=== PATIENT | female | born 1985 | race Caucasian/White ===

== ENCOUNTER 2016-05-25 06:50 | Emergency (ER) | payer MEDICAID, OTHER ==
[2016-05-25] VITALS (17 sets, daily range): PULSE 76–92; TEMP 98.4
[~2016-05-25 06:50] MED LIST: PREN1CAP30 PO; PREN29TA PO
[2016-05-25 08:30] LABS: BACTERIA, URINE MOD /hpf; BLOOD, URINE NEG (NEG); COMMENT (UR) CULTURE INDICATED; CULTURE IF INDICATED CULTURE INDICATED; GLUCOSE,URINE 70 mg/dL (NEG); KETONE, URINE NEG (NEG); NITRITE,URINE NEG (NEG); PH, URINE 6.5 (5.0-8.5); SQUAMOUS EPITHELIAL CELL URINE 32 /hpf (0-5); TRANSITIONAL EPI CELLS, URINE 1 /hpf; URINE COLOR LIGHT-YELLOW (YELLW/STRAW)
--- NOTE | 2016-05-25 08:42 | PD ---
HPI Chief Complaint Lower abdominal discomfort Date Seen: May 25, 2016 Time Seen: 08:10 Travel History International Travel<30 Days: No Contact w/Intl Traveler<30Days: No Known Affected Area: No History of Present Illness HPI 30-year-old 1 para 0 at 31-3/7 weeks gestation with an EDC of July 24. She comes today reporting several weeks of lower abdominal pain which has been worse over the past 12 hours. She denies leakage of fluid or vaginal discharge. No vaginal bleeding or decreased movement. She is uncertain if this represents contractions. Para: 0 : 1 History Past Medical History Narrative Medical Renal lithiasis, last one 6 years ago Obstetric History Obstetric History Primigravida who [facility] Past Surgical History Narrative Surgical Appendectomy Family History Family History: Negative Social History Alcohol Use: No Tobacco Use: Yes (2-10 per day) Substance Abuse: No Allergies-Medications (Allergen,Severity, Reaction): Coded Allergies: Amoxicillin (Verified Allergy, Severe, N/V, 05/25/16) Penicillin (Verified Allergy, Severe, N/V, 05/25/16) Home Meds Active Scripts Without A W/Fe Fum-Fe (Provida Dha 16-16-1.25-110 mg)1 Cap Cap1 Tab PO DAILY #30 BOTTLE Ref 11 Prov:Aisha Grissom 03/27/16 Vit-Iron Carbonyl ( Plus Iron 29-1 mg)1 Tab Tab1 Tab PO DAILY #30 TAB Ref 0 Prov:Katie Velasquez MD 02/03/16 Review of Systems Except as stated in HPI: all other systems reviewed are Neg Physical Exam Vital Signs Date Time Temp Pulse Resp B/P Pulse Ox O2 Delivery O2 Flow Rate FiO2 05/25/16 07:55 85 05/25/16 07:50 86 05/25/16 07:45 92 05/25/16 07:40 83 05/25/16 07:35 85 05/25/16 07:30 98.4 05/25/16 07:30 91 05/25/16 07:25 84 05/25/16 07:20 92 Narrative GENERAL: Well-nourished, well-developed patient. SKIN: Warm and dry. HEAD: Normocephalic and atraumatic. EYES: No scleral icterus. No injection or drainage. ENT: No nasal drainage noted. Mucous membranes pink. Airway patent. NECK: Supple, trachea midline. No JVD. CARDIOVASCULAR: Regular rate and rhythm without murmurs, gallops, or rubs. RESPIRATORY: Breath sounds equal bilaterally. No accessory muscle use. ABDOMEN/GI: Abdomen soft, non-tender, bowel sounds present, no rebound, no guarding Gravid to [-] weeks size Fundal Height: [-] GENITOURINARY: External Genitalia: intact and normal in appearance BUS glands: [Negative-] Cervix: [-] Dilatation: [-Closed] Effacement: [-] Long Station: [High-] Presentation: [-] Membranes: [intact] Uterine Contractions: [-No] FHT's: Category: [-1] Baseline: [-] Reactive: [Yes-] Variability: [-] Decels: [-] EXTREMITIES: No cyanosis or edema. BACK: Nontender without obvious deformity. No CVA tenderness. NEUROLOGICAL: Awake and alert. Motor and sensory grossly within normal limits. Five out of 5 muscle strength in all muscle groups. Normal speech. Data Data Vital Signs Reviewed: Yes Orders Vital Signs (Adult) .ON ADMISSION (05/25/16 07:53) ^ Labor Status (05/25/16 07:53) Urinalysis - C+S If Indicated (05/25/16 07:53) MDM Medical Record Reviewed: Yes Narrative Course / MDM Assessment: 30-year-old primigravida at 31+ weeks gestation with lower abdominal discomfort without evidence of urinary tract disease or labor. I suspect this is nonpathologic pain associated with Plan: Precautions were reviewed with the patient for emergent follow-up. Routine care follow-up was encouraged. Smoking cessation was encouraged. Diagnosis Diagnosis: Primary Impression: 31 weeks gestation of Additional Impression: Pelvic pain affecting in third trimester, antepartum Disposition: 01 DISCHARGE HOME Condition: Good Patient Instructions: General Instructions, Early Labor Signs (ED), Abdominal Pain in (ED) Departure Forms: Tests/Procedures Perry Castrejon MD May 25, 2016 08:42
== END 2016-05-25 08:50 | disposition home or self-care (01) ==
LOC: HOBED 06:50
DX: O26.893 Other specified pregnancy related conditions, third trimester (principal); O99.333 Smoking (tobacco) complicating pregnancy, third trimester; R10.2 Pelvic and perineal pain; Z3A.31 31 weeks gestation of pregnancy
CPT/HCPCS: 81001; 87086; 99284

== ENCOUNTER 2016-06-10 16:32 | Emergency (ER) | payer MEDICAID ==
[2016-06-10 16:39] VITALS: BP 123/77; PULSE 71; RESP 15; TEMP 98.2; O2SAT 97
== END 2016-06-10 17:42 | disposition left against medical advice (07) ==
LOC: NED 16:32
DX: R10.32 Left lower quadrant pain (principal)
CPT/HCPCS: 99281

== ENCOUNTER 2017-01-11 06:32 | Emergency (ER) | payer SELFPAY ==
[~2017-01-11] VITALS: Ht 165.1 cm; Wt 85.0 kg
[2017-01-11 06:35] VITALS: BP 150/95; PULSE 83; RESP 16; TEMP 97.7; O2SAT 100
[2017-01-11] MEDS ORDERED: CLIN1CAP5 PO (07:42)
[2017-01-11] MEDS ORDERED: PRED-503 PO (07:42)
--- NOTE | 2017-01-11 07:44 | PD ---
HPI Chief Complaint: Skin Problem Time Seen by Provider: 07:40 Travel History International Travel<30 days: No Contact w/Intl Traveler<30days: No Traveled to known affect area: No History of Present Illness HPI 31-year-old female presents to the emergency department with complaint of a rash to bilateral hands 4-5 days. 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 None of this is new to her. Denies new medications, soaps, detergents, lotions, foods, environmental exposures. Denies fever, vomiting. Denies paresthesias, decreased range of motion, decreased strength, loss of sensation to bilateral upper extremities. Describes the rash is itchy and burning sensation. Has not tried any medications or treatments to alleviate her symptoms. No known aggravating or relieving factors. Symptoms are mild in severity. Has no other medical complaints. Allergies to amoxicillin and penicillin. No other modifying factors or associated signs and symptoms. PFSH Past Medical History Diminished Hearing: No Genitourinary: Yes (KIDNEY STONES) Kidney Stones: Yes Tetanus Vaccination: Unknown Influenza Vaccination: No ?: Not LMP: 01/11/2017 : 1 Para: 1 Past Surgical History Appendectomy: Yes Social History Alcohol Use: No Tobacco Use: Yes (2-10 per day) Substance Use: No Allergies-Medications (Allergen,Severity, Reaction): Coded Allergies: amoxicillin (Unverified Allergy, Severe, N/V, 11/11/16) penicillin G (Unverified Allergy, Severe, N/V, 11/11/16) Reported Meds & Prescriptions Reported Meds & Active Scripts Active Deltasone (Prednisone) 20 Mg Tab 40 Mg PO DAILY 5 Days Clindamycin (Clindamycin HCl) 150 Mg Cap 300 Mg PO Q6H 10 Days Provida Dha 16-16-1.25-110 mg ( Without A W/Fe Fum-Fe) 1 Cap Cap 1 Tab PO DAILY Plus Iron 29-1 mg ( Vit-Iron Carbonyl) 1 Tab Tab 1 Tab PO DAILY Review of Systems Except as stated in HPI: all other systems reviewed are Neg Physical Exam Narrative GENERAL: Well-nourished, well-developed female patient, in no acute distress SKIN: Warm and dry. Dorsal aspect of bilateral hands with erythemic, dry rash that seems to be consistent with fungal infection or contact dermatitis; there are some areas of excoriation and open areas without drainage. Bilateral upper extremities are supple and non-tense with 2+ radial pulses and sensory intact and without erythema or edema. HEAD: Atraumatic. Normocephalic. EYES: Pupils equal and round. No scleral icterus. No injection or drainage. ENT: Mucosa pink and moist. Airway patent. NECK: Trachea midline. CARDIOVASCULAR: Regular rate. RESPIRATORY: No accessory muscle use. GASTROINTESTINAL: Obese. MUSCULOSKELETAL: No obvious deformities. No clubbing. No cyanosis. No edema. NEUROLOGICAL: Awake and alert. Oriented 3. No obvious cranial nerve deficits. Motor grossly within normal limits. Normal speech. PSYCHIATRIC: Appropriate mood and affect; insight and judgment normal. Data Data Last Documented VS Vital Signs Date Time Temp Pulse Resp B/P (MAP) Pulse Ox O2 Delivery O2 Flow Rate FiO2 01/11/17 06:35 97.7 83 16 150/95 (113) 100 Room Air Orders Orders Ed Discharge Order (01/11/17 07:45) MDM Medical Decision Making Medical Screen Exam Complete: Yes Emergency Medical Condition: Yes Medical Record Reviewed: Yes Differential Diagnosis Contact dermatitis, tinea corporis, cellulitis Narrative Course 31-year-old female with a rash to both of her hands. Rash seems to be consistent with due to contact dermatitis or tinea corporis. There are some open excoriated areas and I will treat the patient with antibiotics for possible infection. Instructed patient to use [id number] antifungal cream as directed and as needed for rash. I will prescribe Deltasone for possible contact dermatitis. Instructed patient to follow up with dermatology. Deltasone, clindamycin prescribed for home. Instructed patient to follow up with primary care provider. Patient verbalizes understanding and agreement with treatment plan. Patient is medically cleared and stable for discharge. Discussed reasons to return to the emergency department. Patient agrees with treatment plan. The patients vital signs are stable and the patient is stable for outpatient follow-up and treatment. Patient discharged home, stable and in no acute distress. Diagnosis Primary Impression: Rash of hands Referrals: [facility] Primary Care Physician Patient Instructions: General Allergic Reaction (ED), General Instructions, Tinea Corporis (ED) Departure Forms: Tests/Procedures, Work Release Enter return to work date: Jan 11, 2017 Additional Instructions: Take oral steroids as prescribed [id number] topicals to reduce itch Benadryl as directed and as needed to reduce itch [id number] antifungal cream as directed and as needed for rash Change gloves consistently at work; keep hands clean and dry Follow-up with your primary care provider Follow-up with dermatology as needed Return to the emergency department immediately with worsening of symptoms Med/Other Pt SpecificInfo: Prescription(s) given Scripts Prednisone (Deltasone) 20 Mg Tab 40 MG PO DAILY for 5 Days, #10 TAB 0 Refills Prov: Loan Obando 01/11/17 Clindamycin (Clindamycin) 150 Mg Cap 300 MG PO Q6H for Infection for 10 Days, #80 CAP 0 Refills Prov: Loan Obando 01/11/17 Disposition: 01 DISCHARGE HOME Condition: Stable Loan Obando Jan 11, 2017 07:44
== END 2017-01-11 08:07 | disposition home or self-care (01) ==
LOC: NEPD 06:32
DX: R21 Rash and other nonspecific skin eruption (principal)
CPT/HCPCS: 99284